=== PATIENT | male | born 1985 | race Caucasian/White ===

== ENCOUNTER 2020-03-25 10:10 | Outpatient (CLI) | payer OTHER ==
[2020-03-26 11:42] LABS: SARS-CoV-2 MS2 Positive; SARS-CoV-2 N Gene Negative; SARS-CoV-2 S Gene Negative; SARS-CoV-2 by NAA Not Detected (NotDetected); SARS-CoV-2 orf1ab Negative
== END 2020-03-25 10:11 | disposition home or self-care (01) ==
LOC: LABBT 10:10
PROVIDERS: ATTEND Orthopaedic Surgery
DX: Z01.812 Encounter for preprocedural laboratory examination (principal); Z11.59 Encounter for screening for other viral diseases; S93.431A Sprain of tibiofibular ligament of right ankle, initial encounter
CPT/HCPCS: 87635; U0003

== ENCOUNTER 2020-03-27 10:01 | Day surgery (SDC) | payer OTHER ==
[2020-03-26 12:33] VITALS: BMI 33.3
[~2020-03-27 10:01] MED LIST: Dexamethasone 20 MG/5 ML VIAL ONE; Ketorolac Tromethamine 30 MG/ML VIAL ONE; Lidocaine 1% PF 5 ML VIAL ONE; Ondansetron PF 4 MG/2 ML Vial ONE; PROPOFOL 200 MG/20 ML VIAL ONE
[2020-03-27] MEDS ORDERED: Bupivacaine PF 0.5% 30 ML VIAL ONE (11:57)
[2020-03-27] MEDS ORDERED: Fentanyl 100 MCG/2 ML VIAL ONE ×3 (12:08→13:58)
[2020-03-27] MEDS ORDERED: Labetalol HCl 100 MG/20 ML VIAL ONE (14:08)
[2020-03-27] MEDS ORDERED: HYDROcodone/Acetaminophen 5/325 mg Tablet ONE (14:51)
--- NOTE | 2020-03-27 16:31 | RAD ---
XR Ankle Rt 3 View STANDARD History: ORIF right ankle Comparison: Radiograph March 24, 2020 Findings: Interval placement of 2 cortical screws from lateral-medial approach through the syndesmosi s. Satisfactory postoperative appearance. Impression: Satisfactory postoperative appearance.
--- NOTE | 2020-03-28 10:49 | OP ---
DATE OF PROCEDURE: 03/27/2020 PREOPERATIVE DIAGNOSIS: Right fibular shaft fracture with syndesmotic disruption. POSTOPERATIVE DIAGNOSIS: Right fibular shaft fracture with syndesmotic disruption. SURGICAL PROCEDURE: 1. Screw fixation of right ankle syndesmotic disruption. 2. Repair of deltoid ligament. ANESTHESIA: General. GRAVITY PROSPECTING OPERATOR HELPER: None. IMPLANTS: Synthes 4.0 mm cortical screws x2. COMPLICATIONS: None. DRAINS: None. SPECIMENS: None. OUTCOME: Satisfactory. INDICATIONS: The patient is a 34-year-old gentleman, who is now a little over a week status post right fibular shaft fracture with disruption of the syndesmosis with lateral shift of the talus and widening of the mortise. After discussion with the patient including risks and benefits, we decided to proceed with stabilization of the syndesmosis. Informed consent has been obtained, I believe all questions answered. DESCRIPTION OF PROCEDURE: The patient was brought to the operating room and a time-out was performed followed by induction of general anesthesia. Next, the patient was positioned supine on the OR table and a sterile prep and drape was performed of the right lower extremity. Next, an attempt was made at closed reduction of the syndesmotic disruption. However, even with applying a clamp through 2 small stab wounds medially and laterally, the medial joint space remained widened. This made me concerned for interposition of the deltoid ligament within the joint and as such, the first step was to make a medial skin incision overlying the medial malleolus. After skin was sharply incised, dissection was carried down bluntly and then coming just to the anterior portion of the deltoid ligament, the fascia was incised and at this point, the deltoid ligament could be seen to have spun and become impacted within the medial joint space. Using pickups, this was removed from the medial joint space and then AP and mortise x-ray of the ankle was obtained and this resulted in the ability to anatomically reduced the mortise. As such, while the medial side was opened, this was irrigated with bulb syringe and then 2-0 Vicryl was used to reapproximate the deltoid ligament. Next, attention was placed laterally. Two small incisions were made over the distal fibula. After skin was bluntly dissected, a drill was passed from the fibula across into the both cortices of the distal tibia. This was followed by reduction of the mortise and then passage of a 4 mm cortical screw. A 2nd screw was passed in identical fashion, getting stability of the distal tib-fib articulation with advent of the normal mortise and correction of the lateral shift of the talus. At the completion of this, final AP, lateral, and mortise x-rays were obtained and then wound closure performed. The small stab wounds were closed with samra. The more sizable medial wound was closed in layers with 2-0 Vicryl followed by samra. A Xeroform gauze, Webril, and fiberglass splint were then applied to the ankle. The patient was then transferred to recovery room in stable condition. There were no complications. He tolerated the procedure well. Job ID: [id number]
== END 2020-03-27 15:52 | disposition home or self-care (01) ==
LOC: SDC 10:01
PROVIDERS: ATTEND Orthopaedic Surgery
PROC: 0SSF04Z Reposition Right Ankle Joint with Internal Fixation Device, Open Approach (ICD-10-PCS; principal; 2020-03-27)
DX: S93.431A Sprain of tibiofibular ligament of right ankle, initial encounter (principal); S82.434A Nondisplaced oblique fracture of shaft of right fibula, initial encounter for closed fracture; X50.1XXA Overexertion from prolonged static or awkward postures, initial encounter
CPT/HCPCS: 76000; C1713; J0690; J1100; J1885; J2405; J2704; J3010; S0020

== ENCOUNTER 2020-06-16 09:13 | Outpatient (CLI) | payer OTHER ==
[2020-06-17 11:37] LABS: SARS-CoV-2 MS2 Positive; SARS-CoV-2 N Gene Negative; SARS-CoV-2 S Gene Negative; SARS-CoV-2 by NAA Not Detected (NotDetected); SARS-CoV-2 orf1ab Negative
== END 2020-06-16 09:14 | disposition home or self-care (01) ==
LOC: LABBT 09:13
PROVIDERS: ATTEND Orthopaedic Surgery
DX: T85.848A Pain due to other internal prosthetic devices, implants and grafts, initial encounter (principal); Z20.828 Contact with and (suspected) exposure to other viral communicable diseases
CPT/HCPCS: 87635; U0003

== ENCOUNTER 2020-06-19 11:03 | Day surgery (SDC) | payer OTHER ==
[2020-06-18 09:32] VITALS: BMI 33.3
[2020-06-19] MEDS ORDERED: PROPOFOL 200 MG/20 ML VIAL ONE (11:21)
[2020-06-19] MEDS ORDERED: Lidocaine 1% PF 5 ML VIAL ONE (11:21)
[2020-06-19] MEDS ORDERED: Midazolam HCl 2 mg/2 ml Vial ONE (12:34)
[2020-06-19] MEDS ORDERED: PROPOFOL 20 ML ONE (12:35)
[2020-06-19] MEDS ORDERED: Fentanyl 100 MCG/2 ML VIAL ONE ×2 (12:35→13:42)
[2020-06-19] MEDS ORDERED: Lidocaine 1% (PF) 30 ML VIAL ONE (12:59)
[2020-06-19] MEDS ORDERED: Acetaminophen/Codeine 30-300mg Tablet ONE (14:43)
--- NOTE | 2020-06-19 20:24 | RAD ---
SINGLE VIEW OF THE RIGHT ANKLE: 06/19/20 COMPARISON: 03/27/20. HISTORY: Hardware removal from the right ankle. FINDINGS/IMPRESSION: A single limited fluoroscopic view of the right ankle shows removal of the previously seen screws spa nning the tibiofibular syndesmosis. No residual hardware is seen in the ankle. POS: EAA
--- NOTE | 2020-06-20 11:18 | OP ---
DATE OF PROCEDURE: 06/19/2020 PREOPERATIVE DIAGNOSES: Symptomatic retained hardware, right ankle. POSTOPERATIVE DIAGNOSIS: Symptomatic retained hardware, right ankle. PROCEDURE PERFORMED: Removal of syndesmotic screws, right ankle. ANESTHESIA: General. AVIONICS TEST TECHNICIAN: Benedict. SUPPLEMENTAL ANESTHESIA: 10 mL of 1% lidocaine for skin incisions. TOURNIQUET TIME: 0. ESTIMATED BLOOD LOSS: Less than 5 mL. COMPLICATIONS: None. DRAINS: None. SPECIMEN: Explanted screws, discarded. INDICATIONS FOR PROCEDURE: The patient is a 34-year-old gentleman, status post right ankle fracture subluxation with fibular shaft fracture and disruption of ankle mortise. This was treated with a reduction and syndesmotic screw placement. The patient has now gone on to heal the fibular shaft and is now 3 months postop and as such, taken back to the operating room for removal of syndesmotic screws. Informed consent has been obtained, I believe all questions answered. DESCRIPTION OF PROCEDURE: The patient was brought to the operating room and a time-out performed, followed by induction of general anesthesia. Next, two small stab wounds were made following the scars from the syndesmotic screw placement. After skin was sharply incised, dissection was carried down bluntly such that the heads of these screws could be identified. The two screws were then removed without difficulty. At the completion of this, AP and mortise x-ray was obtained in the operating room to confirm the removal of the hardware as well as to confirm that the mortise was anatomically reduced. At this point, the two incisions were closed with nylon suture and then infiltrated with a total of 10 mL of 1% lidocaine. At this point, my assistant chief engineer provided assistance with splint application. The patient was then transferred to recovery room in stable condition. There were no complications. The patient tolerated the procedure well. Job ID: [id number]
== END 2020-06-19 15:07 | disposition home or self-care (01) ==
LOC: SDC 11:03
PROVIDERS: ATTEND Orthopaedic Surgery
PROC: 0SPF04Z Removal of Internal Fixation Device from Right Ankle Joint, Open Approach (ICD-10-PCS; principal; 2020-06-19)
DX: T84.9XXA Unspecified complication of internal orthopedic prosthetic device, implant and graft, initial encounter (principal)
CPT/HCPCS: 76000; J0690; J2001; J2250; J2704; J3010